=== PATIENT | female | born 1980 | race Caucasian/White ===

== ENCOUNTER → 2021-06-30 | Outpatient (CLI) | payer OTHER ==
[~2021-06-30] MED LIST: Clindamycin HC150 MG PO
== END | disposition home or self-care (01) ==
LOC: LAB SHORT 15:15
DX: R10.9 Unspecified abdominal pain (principal)
CPT/HCPCS: 87086

== ENCOUNTER → 2023-07-16 | Outpatient (CLI) | payer OTHER ==
[2023-07-16 19:54] LABS: BASOPHILS ABSOLUTE AUTO 0.07 K/mm3 (0.00-0.23); BASOPHILS PERCENT AUTO 1 % (0-2); EOSINOPHILS ABSOLUTE AUTO 0.06 K/mm3 (0.00-0.68); EOSINOPHILS PERCENT AUTO 1 % (0-6); Hematocrit 46.1 % (33.0-51.0); IMMATURE GRAN ABSOLUTE AUTO 0.02 K/mm3 (0.00-0.10); IMMATURE GRAN PERCENT AUTO 0 % (0-1); LYMPHOCYTES PERCENT AUTO 31 % (21-46); MONOCYTES ABSOLUTE AUTO 0.51 K/mm3 (0.16-1.47); MONOCYTES PERCENT AUTO 6 % (4-13); Mean Corpuscular HGB 31.8 pg (26.0-34.0); Mean Corpuscular HGB Conc 34.7 g/dL (31.5-36.5); Mean Corpuscular Volume 92 fL (80-100); NEUTROPHILS ABSOLUTE AUTO 5.56 K/mm3 (1.96-9.15); NEUTROPHILS PERCENT AUTO 62 % (41-73); Platelet Count 205 K/mm3 (150-400); RDW Coefficient Variation 12.8 % (11.7-14.2); RDW Standard Deviation 43.2 fL (35.1-46.3); Red Blood Cell Count 5.03 M/mm3 (3.80-5.20); White Blood Cell Count 9.02 K/mm3 (4.00-11.30)
[2023-07-16 20:10] LABS: Follicle Stimulating Hormone 105.7 mIU/ml; Luteinizing Hormone 49.6 mIU/ml; Percent Saturation 30.3 % (15.0-50.0); Prolactin 8.3 ng/mL
[2023-07-19 07:09] LABS: ESTRADIOL BY IMMUNOASSAY 20 pg/mL
== END ==
LOC: LAB 18:42 → LAB SHORT 18:42
PROVIDERS: General Practice
DX: E83.19 Other disorders of iron metabolism (principal); N95.1 Menopausal and female climacteric states
CPT/HCPCS: 82670; 82728; 83001; 83002; 83540; 83550; 84146; 85025

== ENCOUNTER 2023-09-08 00:19 | Emergency (ER) | payer MEDICARE, OTHER ==
[~2023-09-08] VITALS: Ht 162.6 cm; Wt 59.9 kg
[2023-09-08 01:38] VITALS: BP 130/84
[2023-09-08] MEDS ORDERED: NICODERM CQ1 EA11 TOP (02:26)
== END 2023-09-08 02:42 | disposition home or self-care (01) ==
LOC: ER 00:19
DX: I83.93 Asymptomatic varicose veins of bilateral lower extremities (principal); M67.442 Ganglion, left hand; F17.210 Nicotine dependence, cigarettes, uncomplicated; Z88.0 Allergy status to penicillin; Z91.040 Latex allergy status; Z88.5 Allergy status to narcotic agent; Z91.048 Other nonmedicinal substance allergy status
CPT/HCPCS: 99282